=== PATIENT | female | born 1935 | race Caucasian/White ===

== ENCOUNTER 2017-10-27 19:33 | Inpatient (IN) | payer MEDICARE, BC ==
[~2017-10-27] VITALS: Ht 155 cm; Wt 76.8 kg
[2017-10-27] VITALS (8 sets, daily range): BP systolic 154–217; BP diastolic 69–120
[2017-10-27 20:00] LABS: BASO % 0.7 % (0.0-1.0); EOS # 0.2 10*3/uL (0.0-0.4); HEMATOCRIT 41.4 % (37.0-47.0); HEMOGLOBIN 13.7 g/dl (12.0-16.0); LYMPH # 1.5 10*3/uL (1.3-4.4); LYMPH % 26.8 % (27.0-41.0); MEAN CELL VOLUME 85.9 fl (81.0-99.0); MEAN CORPUSCULAR HGB 28.4 pg (27.0-31.0); MEAN CORPUSCULAR HGB CONC 33.1 g/dl (33.0-37.0); MEAN PLATELET VOLUME 10.5 fl (9.6-12.3); MONO # 0.4 10*3/uL (0.1-1.0); MONO % 6.7 % (3.0-9.0); NEUT # 3.4 10*3/uL (2.3-7.9); NEUT % 61.3 % (47.0-73.0); PLATELET COUNT AUTOMATED 224 10*3/uL (130-400); RED BLOOD COUNT 4.82 10*6/uL (4.10-5.10); RED CELL DISTRI WIDTH 14.1 % (0-14.5); WHITE BLOOD COUNT 5.6 10*3/uL (4.8-10.8)
[2017-10-27 20:24] LABS: ALBUMIN 3.5 gm/dl (3.1-4.5); BUN 14 mg/dl (7-24); CHLORIDE 108 mmol/L (98-107); CREATININE 1.08 mg/dL (0.55-1.02); POTASSIUM 3.8 mmol/L (3.5-5.1); SGOT/AST 16 IU/L (3-35); SGPT/ALT 19 U/L (12-78); SODIUM 141 mmol/L (136-145); TOTAL PROTEIN 7.3 gm/dL (6.4-8.2)
[2017-10-27 20:26] LABS: ALKALINE PHOSPHATASE 253 U/L (45-117)
[2017-10-27 20:27] LABS: TROPONIN I < 0.015 ng/ml (<0.045)
[2017-10-27] MEDS ORDERED: CLOPIDOGREL75 MG PO (22:42)
[2017-10-27] MEDS ORDERED: QUINAPRIL40 MG PO (22:42)
[2017-10-27] MEDS ORDERED: ATENOLOL25 MG PO (22:42)
[2017-10-27] MEDS ORDERED: TAPAZOLE5 MG PO (22:43)
[2017-10-27] MEDS ORDERED: LATANOPROST2.5 ML OP (22:44)
[2017-10-27] MEDS ORDERED: DORZOLAMIDE HCL10 ML OP (22:44)
[2017-10-27] MEDS ORDERED: VITAMIN D32000 UNIT PO (22:47)
[2017-10-27] MEDS ORDERED: VITAMIN B COMP1 EAC1 PO (22:48)
[2017-10-27 23:58] LABS: BILIRUBIN NEGATIVE (NEGATIVE); BLOOD NEGATIVE (NEGATIVE); CLARITY CLEAR (CLEAR); COLOR YELLOW (YELLOW); GLUCOSE NEGATIVE (NEGATIVE); KETONE NEGATIVE (NEGATIVE); LEUKO ESTERASE TRACE (NEGATIVE); NITRITE NEGATIVE (NEGATIVE); SPECIFIC GRAVITY <= 1.005 (1.005-1.030); UROBILINOGEN 0.2 E.U./dl (0.2-1.0)
[2017-10-28 02:14] LABS: BASO % 0.5 % (0.0-1.0); EOS # 0.2 10*3/uL (0.0-0.4); EOS % 3.1 % (1.0-4.0); HEMATOCRIT 39.7 % (37.0-47.0); HEMOGLOBIN 13.2 g/dl (12.0-16.0); LYMPH # 1.4 10*3/uL (1.3-4.4); LYMPH % 23.8 % (27.0-41.0); MEAN CELL VOLUME 85.6 fl (81.0-99.0); MEAN CORPUSCULAR HGB 28.4 pg (27.0-31.0); MEAN CORPUSCULAR HGB CONC 33.2 g/dl (33.0-37.0); MEAN PLATELET VOLUME 9.8 fl (9.6-12.3); MONO # 0.4 10*3/uL (0.1-1.0); MONO % 7.2 % (3.0-9.0); NEUT # 3.7 10*3/uL (2.3-7.9); NEUT % 65.1 % (47.0-73.0); PLATELET COUNT AUTOMATED 193 10*3/uL (130-400); RED BLOOD COUNT 4.64 10*6/uL (4.10-5.10); RED CELL DISTRI WIDTH 14.2 % (0-14.5); WHITE BLOOD COUNT 5.7 10*3/uL (4.8-10.8)
[2017-10-28 02:30] LABS: ALBUMIN 3.3 gm/dl (3.1-4.5); ALKALINE PHOSPHATASE 224 U/L (45-117); BUN 13 mg/dl (7-24); CHLORIDE 108 mmol/L (98-107); CHOLESTEROL 234 mg/dL (<200); CREATININE 0.81 mg/dL (0.55-1.02); HDL CHOLESTEROL 49 mg/dl (40-60); LDL CHOLESTEROL 161 mg/dL (9-159); PHOSPHOROUS 3.1 mg/dL (2.5-4.9); POTASSIUM 3.7 mmol/L (3.5-5.1); SGOT/AST 14 IU/L (3-35); SGPT/ALT 15 U/L (12-78); SODIUM 145 mmol/L (136-145); TOTAL PROTEIN 6.5 gm/dL (6.4-8.2); TRIGLYCERIDES 120 mg/dl (<150); VLDL CHOLESTEROL 24 mg/dL (6-40)
[2017-10-28 02:32] LABS: FREE T4 1.02 ng/dl (0.76-1.46)
[2017-10-28 03:10] VITALS: BP 156/54
[2017-10-28 07:07] LABS: VITAMIN D, 25-HYDROXY 27.6 ng/mL (30-100)
[2017-10-28 08:00] VITALS: BP 151/69
[2017-10-28 12:35] VITALS: BP 156/62
[2017-10-28 16:47] VITALS: BP 156/73
[2017-10-28 20:00] VITALS: BP 133/45
[2017-10-29] VITALS: BP 146/79
[2017-10-29 06:52] LABS: ALBUMIN 3.1 gm/dl (3.1-4.5); BUN 12 mg/dl (7-24); CHLORIDE 108 mmol/L (98-107); CREATININE 0.72 mg/dL (0.55-1.02); POTASSIUM 3.5 mmol/L (3.5-5.1); SGOT/AST 13 IU/L (3-35); SGPT/ALT 13 U/L (12-78); SODIUM 140 mmol/L (136-145)
[2017-10-29 06:54] LABS: ALKALINE PHOSPHATASE 211 U/L (45-117); TOTAL PROTEIN 6.1 gm/dL (6.4-8.2)
[2017-10-29 07:51] VITALS: BP 152/90
[2017-10-29] MEDS ORDERED: HYDROCHLOROTH12.5 M3 PO (09:22)
== END 2017-10-29 11:35 | disposition home or self-care (01) | DRG 304 ==
LOC: ED 19:33 → EDHOLD 21:33 → 4E 22:02
PROVIDERS: Emergency Medicine; Internal Medicine
DX: I16.0 Hypertensive urgency (principal); N17.0 Acute kidney failure with tubular necrosis; J98.11 Atelectasis; D72.810 Lymphocytopenia; E87.8 Other disorders of electrolyte and fluid balance, not elsewhere classified; R73.9 Hyperglycemia, unspecified; R74.8 Abnormal levels of other serum enzymes; I25.10 Atherosclerotic heart disease of native coronary artery without angina pectoris; E03.9 Hypothyroidism, unspecified; I10 Essential (primary) hypertension; G57.91 Unspecified mononeuropathy of right lower limb; E78.5 Hyperlipidemia, unspecified; E66.9 Obesity, unspecified; L40.9 Psoriasis, unspecified; Z79.899 Other long term (current) drug therapy; Z95.5 Presence of coronary angioplasty implant and graft; Z85.028 Personal history of other malignant neoplasm of stomach; Z82.49 Family history of ischemic heart disease and other diseases of the circulatory system; Z88.0 Allergy status to penicillin; Z68.31 Body mass index [BMI] 31.0-31.9, adult

== ENCOUNTER 2017-11-06 02:28 | Emergency (ER) | payer MEDICARE, BC ==
[~2017-11-06] VITALS: Ht 154.9 cm; Wt 72.6 kg
[~2017-11-06 02:28] MED LIST: ATENOLOL25 MG PO; CLOPIDOGREL75 MG PO; DORZOLAMIDE HCL10 ML OP; HYDROCHLOROTH12.5 M3 PO; LATANOPROST2.5 ML OP; QUINAPRIL40 MG PO; TAPAZOLE5 MG PO; VITAMIN B COMP1 EAC1 PO; VITAMIN D32000 UNIT PO
[2017-11-06 02:54] LABS: BASO % 0.5 % (0.0-1.0); EOS # 0.2 10*3/uL (0.0-0.4); EOS % 2.1 % (1.0-4.0); HEMATOCRIT 40.3 % (37.0-47.0); HEMOGLOBIN 13.7 g/dl (12.0-16.0); LYMPH # 1.1 10*3/uL (1.3-4.4); MEAN CELL VOLUME 84.1 fl (81.0-99.0); MEAN CORPUSCULAR HGB 28.6 pg (27.0-31.0); MEAN PLATELET VOLUME 10.3 fl (9.6-12.3); MONO # 0.5 10*3/uL (0.1-1.0); MONO % 5.7 % (3.0-9.0); NEUT # 6.2 10*3/uL (2.3-7.9); NEUT % 77.1 % (47.0-73.0); PLATELET COUNT AUTOMATED 216 10*3/uL (130-400); RED BLOOD COUNT 4.79 10*6/uL (4.10-5.10); RED CELL DISTRI WIDTH 13.3 % (0-14.5)
[2017-11-06 03:05] LABS: ACT PARTIAL THROMBO TIME 23.1 SECONDS (20.8-31.5)
[2017-11-06 03:13] LABS: ALBUMIN 3.4 gm/dl (3.1-4.5); ALKALINE PHOSPHATASE 223 U/L (45-117); BUN 17 mg/dl (7-24); CHLORIDE 94 mmol/L (98-107); CREATININE 0.82 mg/dL (0.55-1.02); POTASSIUM 3.4 mmol/L (3.5-5.1); SGOT/AST 13 IU/L (3-35); SGPT/ALT 15 U/L (12-78); SODIUM 132 mmol/L (136-145); TOTAL PROTEIN 6.9 gm/dL (6.4-8.2)
[2017-11-06 03:15] LABS: TROPONIN I < 0.015 ng/ml (<0.045)
== END 2017-11-06 04:07 | disposition home or self-care (01) ==
LOC: ED 02:28
PROVIDERS: Student in an Organized Health Care Education/Training Program
DX: R51 Headache (principal); I25.10 Atherosclerotic heart disease of native coronary artery without angina pectoris; E78.5 Hyperlipidemia, unspecified; I10 Essential (primary) hypertension; E03.9 Hypothyroidism, unspecified; G62.9 Polyneuropathy, unspecified; E66.9 Obesity, unspecified; Z68.34 Body mass index [BMI] 34.0-34.9, adult; Z98.890 Other specified postprocedural states; Z98.42 Cataract extraction status, left eye; Z98.41 Cataract extraction status, right eye; Z79.899 Other long term (current) drug therapy; Z88.0 Allergy status to penicillin

== ENCOUNTER 2017-12-27 08:26 | Inpatient (IN) | payer MEDICARE, BC ==
[~2017-12-27] VITALS: Ht 157.5 cm; Wt 73.3 kg
[~2017-12-27 08:26] MED LIST changes: -DORZOLAMIDE HCL10 ML OP; +DORZOLAMIDE HCL10 ML OU; -LATANOPROST2.5 ML OP; +LATANOPROST2.5 ML OU; +ULTRA B-100 CO1 EACH SL; -VITAMIN B COMP1 EAC1 PO
[2017-12-27 08:33] VITALS: BP 164/80
[2017-12-27 08:50] LABS: BASO % 0.5 % (0.0-1.0); EOS # 0.1 10*3/uL (0.0-0.4); EOS % 1.5 % (1.0-4.0); HEMOGLOBIN 14.4 g/dl (12.0-16.0); LYMPH # 0.9 10*3/uL (1.3-4.4); LYMPH % 10.9 % (27.0-41.0); MEAN CELL VOLUME 84.5 fl (81.0-99.0); MEAN CORPUSCULAR HGB CONC 34.3 g/dl (33.0-37.0); MEAN PLATELET VOLUME 9.7 fl (9.6-12.3); MONO # 0.4 10*3/uL (0.1-1.0); MONO % 4.5 % (3.0-9.0); NEUT # 6.5 10*3/uL (2.3-7.9); PLATELET COUNT AUTOMATED 257 10*3/uL (130-400); RED BLOOD COUNT 4.97 10*6/uL (4.10-5.10); RED CELL DISTRI WIDTH 13.2 % (0-14.5)
[2017-12-27 08:55] LABS: ACT PARTIAL THROMBO TIME 23.4 SECONDS (20.8-31.5); INTERNATIONAL NORM RATIO 0.9 (2.0-3.5)
[2017-12-27 09:02] LABS: ALBUMIN 3.9 gm/dl (3.1-4.5); ALKALINE PHOSPHATASE 217 U/L (45-117); BUN 17 mg/dl (7-24); CHLORIDE 93 mmol/L (98-107); CREATININE 0.99 mg/dL (0.55-1.02); POTASSIUM 3.8 mmol/L (3.5-5.1); SGOT/AST 12 IU/L (3-35); SGPT/ALT 17 U/L (12-78); SODIUM 130 mmol/L (136-145)
[2017-12-27 09:15] LABS: TROPONIN I < 0.015 ng/ml (<0.045)
[2017-12-27 10:15] VITALS: BP 166/69
[2017-12-27] MEDS ORDERED: HYDR25T PO (10:17)
[2017-12-27] MEDS ORDERED: ASPIR LOW81 MG PO (10:18)
[2017-12-27 10:22] LABS: BILIRUBIN NEGATIVE (NEGATIVE); BLOOD TRACE-LYSED (NEGATIVE); CLARITY SL CLOUDY (CLEAR); COLOR YELLOW (YELLOW); GLUCOSE NEGATIVE (NEGATIVE); KETONE NEGATIVE (NEGATIVE); LEUKO ESTERASE 3+ (NEGATIVE); NITRITE NEGATIVE (NEGATIVE); UROBILINOGEN 0.2 E.U./dl (0.2-1.0)
[2017-12-27 10:35] LABS: BACTERIA 2+; EPITHELIAL CELLS 15-20; WBC 51-100 wbc/hpf (0-5)
[2017-12-27 11:06] VITALS: BP 146/77
[2017-12-27 12:00] VITALS: BP 142/72
[2017-12-27] MEDS ORDERED: LORAZEPAM0.5 MG PO (12:27)
[2017-12-27 16:00] VITALS: BP 146/54
[2017-12-27 20:00] VITALS: BP 151/70
[2017-12-28] VITALS: BP 138/70
[2017-12-28 07:28] LABS: BASO % 0.9 % (0.0-1.0); EOS # 0.2 10*3/uL (0.0-0.4); HEMOGLOBIN 12.6 g/dl (12.0-16.0); LYMPH # 1.2 10*3/uL (1.3-4.4); LYMPH % 27.2 % (27.0-41.0); MEAN CELL VOLUME 84.5 fl (81.0-99.0); MEAN CORPUSCULAR HGB 28.8 pg (27.0-31.0); MEAN CORPUSCULAR HGB CONC 34.1 g/dl (33.0-37.0); MEAN PLATELET VOLUME 10.1 fl (9.6-12.3); MONO # 0.3 10*3/uL (0.1-1.0); MONO % 7.5 % (3.0-9.0); NEUT # 2.7 10*3/uL (2.3-7.9); PLATELET COUNT AUTOMATED 195 10*3/uL (130-400); RED BLOOD COUNT 4.38 10*6/uL (4.10-5.10); RED CELL DISTRI WIDTH 13.1 % (0-14.5); WHITE BLOOD COUNT 4.5 10*3/uL (4.8-10.8)
[2017-12-28 07:59] LABS: CHLORIDE 98 mmol/L (98-107); POTASSIUM 3.5 mmol/L (3.5-5.1); SODIUM 132 mmol/L (136-145)
[2017-12-28 08:00] VITALS: BP 150/88
[2017-12-28 08:04] LABS: BUN 14 mg/dl (7-24); CREATININE 0.72 mg/dL (0.55-1.02); PHOSPHOROUS 3.4 mg/dL (2.5-4.9)
[2017-12-28 12:00] VITALS: BP 131/72
[2017-12-28 16:00] VITALS: BP 144/79
[2017-12-28 20:00] VITALS: BP 157/94
[2017-12-29] VITALS: BP 121/83
[2017-12-29 06:05] LABS: BUN 11 mg/dl (7-24); CHLORIDE 106 mmol/L (98-107); CREATININE 0.74 mg/dL (0.55-1.02); POTASSIUM 3.6 mmol/L (3.5-5.1); SODIUM 140 mmol/L (136-145)
[2017-12-29 08:00] VITALS: BP 152/98
== END 2017-12-29 12:00 | disposition home or self-care (01) | DRG 312 ==
LOC: ED 08:26 → 4E 10:41 → EDHOLD 10:41 → 4E 11:31
PROVIDERS: Emergency Medicine; Family Medicine; Student in an Organized Health Care Education/Training Program
DX: I95.1 Orthostatic hypotension (principal); N39.0 Urinary tract infection, site not specified; E87.1 Hypo-osmolality and hyponatremia; E87.8 Other disorders of electrolyte and fluid balance, not elsewhere classified; R31.21 Asymptomatic microscopic hematuria; E05.90 Thyrotoxicosis, unspecified without thyrotoxic crisis or storm; I25.10 Atherosclerotic heart disease of native coronary artery without angina pectoris; I10 Essential (primary) hypertension; E03.9 Hypothyroidism, unspecified; H40.9 Unspecified glaucoma; E66.9 Obesity, unspecified; L40.9 Psoriasis, unspecified; D72.9 Disorder of white blood cells, unspecified; D72.810 Lymphocytopenia; R74.8 Abnormal levels of other serum enzymes; R73.9 Hyperglycemia, unspecified; G57.91 Unspecified mononeuropathy of right lower limb; R26.2 Difficulty in walking, not elsewhere classified; Z82.49 Family history of ischemic heart disease and other diseases of the circulatory system; Z80.0 Family history of malignant neoplasm of digestive organs; Z88.0 Allergy status to penicillin; Z79.899 Other long term (current) drug therapy; Z98.61 Coronary angioplasty status; Z79.82 Long term (current) use of aspirin; Z68.30 Body mass index [BMI] 30.0-30.9, adult

== ENCOUNTER 2024-02-09 08:49 | Emergency (ER) | payer MEDICARE, BC ==
[~2024-02-09] VITALS: Ht 157.4 cm; Wt 65.3 kg
[~2024-02-09 08:49] MED LIST changes: +ASPIR LOW81 MG PO; +HYDR25T PO; +LORAZEPAM0.5 MG PO
[2024-02-09 09:10] LABS: BASO # 0.1 10*3/uL (0.0-0.1); EOS # 0.3 10*3/uL (0.0-0.4); EOS % 5.1 % (1.0-4.0); HEMATOCRIT 39.4 % (37.0-47.0); LYMPH # 1.3 10*3/uL (1.3-4.4); MEAN CELL VOLUME 92.7 fl (81.0-99.0); MEAN CORPUSCULAR HGB 29.2 pg (27.0-31.0); MEAN CORPUSCULAR HGB CONC 31.5 g/dl (33.0-37.0); MEAN PLATELET VOLUME 10.6 fl (9.6-12.3); MONO # 0.5 10*3/uL (0.1-1.0); MONO % 7.8 % (3.0-9.0); NEUT # 3.7 10*3/uL (2.3-7.9); NEUT % 63.8 % (47.0-73.0); PLATELET COUNT AUTOMATED 230 10*3/uL (130-400); RED BLOOD COUNT 4.25 10*6/uL (4.10-5.10); RED CELL DISTRI WIDTH 13.6 % (0-14.5); WHITE BLOOD COUNT 5.9 10*3/uL (4.8-10.8)
[2024-02-09] MEDS ORDERED: FUROSEMIDE20 M1 PO (09:23)
[2024-02-09] MEDS ORDERED: ATORVASTATIN CA10 M1 PO (09:24)
[2024-02-09] MEDS ORDERED: IRBESARTAN300 M1 PO (09:25)
[2024-02-09] MEDS ORDERED: RHOPRESSA2.5 ML OP (09:25)
[2024-02-09] MEDS ORDERED: HYDRALAZINE HYD50 MG PO (09:26)
[2024-02-09] MEDS ORDERED: ATENOLOL50 M1 PO (09:26)
[2024-02-09] MEDS ORDERED: DULOXETINE HCL60 MG PO (09:27)
[2024-02-09 09:32] LABS: ALKALINE PHOSPHATASE 205 U/L (46-116); BUN 20 mg/dl (9-23); CHLORIDE 106 mmol/L (98-107); POTASSIUM 4.3 mmol/L (3.4-5.1); SGPT/ALT 9 U/L (5-49); TOTAL PROTEIN 6.4 gm/dL (6.0-8.0)
[2024-02-09] MEDS ORDERED: hydrALAZINE hydrochloride 20 MG/ML VIAL IV ONE (10:00)
[2024-02-09] MEDS ORDERED: FUROSEMIDE 20 MG/2 ML VIAL IV ONE (10:10)
== END 2024-02-09 10:30 ==
LOC: ED 08:49
PROVIDERS: Emergency Medicine
DX: S00.03XA Contusion of scalp, initial encounter (principal); I16.0 Hypertensive urgency; I10 Essential (primary) hypertension; I25.10 Atherosclerotic heart disease of native coronary artery without angina pectoris; E78.00 Pure hypercholesterolemia, unspecified; M19.90 Unspecified osteoarthritis, unspecified site; Z88.0 Allergy status to penicillin; Z88.1 Allergy status to other antibiotic agents; Z88.2 Allergy status to sulfonamides; Z88.8 Allergy status to other drugs, medicaments and biological substances; Z98.890 Other specified postprocedural states; Z95.5 Presence of coronary angioplasty implant and graft; W01.190A Fall on same level from slipping, tripping and stumbling with subsequent striking against furniture, initial encounter; Y93.89 Activity, other specified; Y92.89 Other specified places as the place of occurrence of the external cause; Y99.8 Other external cause status